=== PATIENT | male | born 1985 | race Caucasian/White ===

== ENCOUNTER 2018-01-28 09:40 | Emergency (ER) | payer OTHER ==
[~2018-01-28] VITALS: Ht 172.7 cm; Wt 70.3 kg
[2018-01-28 09:46] VITALS: BP_SYST 127
[2018-01-28 10:14] VITALS: BP_SYST 118
== END 2018-01-28 10:14 | disposition home or self-care (01) ==
LOC: SED 09:40
DX: S01.01XD Laceration without foreign body of scalp, subsequent encounter (principal); J45.909 Unspecified asthma, uncomplicated; R03.0 Elevated blood-pressure reading, without diagnosis of hypertension; W25.XXXD Contact with sharp glass, subsequent encounter
CPT/HCPCS: 99281